=== PATIENT | female | born 1975 | race Caucasian/White ===

== ENCOUNTER 2017-11-01 19:28 | Inpatient (IN) | payer SELFPAY ==
--- NOTE | 2017-11-01 19:50 | PDOC ---
History of Present Illness - General History Source: Patient, Family Exam Limitations: No Limitations - History of Present Illness Initial Comments: 11/01/17 20:08 The patient is a 42 year old female, with no significant past medical history, who presents to the emergency department via EMS with, significant abdominal pain, nausea, and vomiting. She describes her pain as diffuse and as if she is going to explode. She reports her pain to worsen when she moves. She reports her abdominal pain to have waxed and waned for approximately a month, however, today is the worse. She reports going to multiple hospitals for her symptoms, without a formal diagnosis. She denies recent fevers, chills, headache or dizziness. She denies recent nausea, vomit, diarrhea or constipation. She denies recent dysuria, frequency, urgency or hematuria. She denies recent chest pain or shortness of breath. Allergies: Penicillins <Faustino Carrizales - Last Filed: 11/02/17 00:01> <Radha Kelsey - Last Filed: 11/02/17 01:52> - General Chief Complaint: Pain, Acute Stated Complaint: ABDOMINAL PAIN Time Seen by Provider: 11/01/17 19:50 Past History <Faustino Carrizales - Last Filed: 11/02/17 00:01> - Suicide/Smoking/Psychosocial Hx Smoking History: Never smoked Have you smoked in the past 12 months: No Information on smoking cessation initiated: No Hx Alcohol Use: No Drug/Substance Use Hx: No <Radha Kelsey - Last Filed: 11/02/17 01:52> - Past Medical History Allergies/Adverse Reactions: Allergies Allergy/AdvReac Type Severity Reaction Status Date / Time Penicillins Allergy Verified 11/01/17 19:40 Home Medications: Ambulatory Orders NK [No Known Home Medication] 11/01/17 Review of Systems - Review of Systems Able to Perform ROS?: Yes Comments:: 11/01/17 20:08 GENERAL/CONSTITUTIONAL: No fever or chills. No weakness. HEAD, EYES, EARS, NOSE AND THROAT: No change in vision. No ear pain or discharge. No sore throat. CARDIOVASCULAR: No chest pain or shortness of breath. RESPIRATORY: No cough, wheezing, or hemoptysis. GASTROINTESTINAL: +Nausea. +Vomiting. +Diffuse abdominal pain. No diarrhea or constipation. GENITOURINARY: No dysuria, frequency, or change in urination. MUSCULOSKELETAL: No joint or muscle swelling or pain. No neck or back pain. SKIN: No rash NEUROLOGIC: No headache, vertigo, loss of consciousness, or change in strength/ sensation. ENDOCRINE: No increased thirst. No abnormal weight change. HEMATOLOGIC/LYMPHATIC: No anemia, easy bleeding, or history of blood clots. ALLERGIC/IMMUNOLOGIC: No hives or skin allergy. All Other Systems: Reviewed and Negative <Faustino Carrizales - Last Filed: 11/02/17 00:01> *Physical Exam - Vital Signs Last Vital Signs Temp Pulse Resp BP Pulse Ox 98.1 F 92 H 22 125/66 97 11/01/17 19:32 11/01/17 19:32 11/01/17 19:32 11/01/17 19:32 11/01/17 19:32 <Faustino Carrizales - Last Filed: 11/02/17 00:01> - Vital Signs Last Vital Signs Temp Pulse Resp BP Pulse Ox 98.1 F 92 H 22 125/66 97 11/01/17 19:32 11/01/17 19:32 11/01/17 19:32 11/01/17 19:32 11/01/17 19:32 - Physical Exam Comments: GENERAL: Awake, alert, and fully oriented, appears in obvious discomfort. HEAD: No signs of trauma EYES: PERRLA, EOMI, sclera anicteric, conjunctiva clear ENT: Auricles normal inspection, hearing grossly normal, nares patent, oropharynx clear without exudates. Moist mucosa NECK: Normal ROM, supple, no lymphadenopathy, JVD, or masses LUNGS: Breath sounds equal, clear to auscultation bilaterally. No wheezes, and no crackles HEART: Regular rate and rhythm, normal S1 and S2, no murmurs, rubs or gallops ABDOMEN: Soft, +epigastric tenderness with small tender mass just superior to the umbilicus. Normoactive bowel sounds. +Guarding, no rebound. No masses EXTREMITIES: Normal range of motion, no edema. No clubbing or cyanosis. No cords, erythema, or tenderness NEUROLOGICAL: Cranial nerves II through XII grossly intact. Normal speech, normal gait SKIN: Warm, Dry, normal turgor, no rashes or lesions noted. <Radha Kelsey - Last Filed: 11/02/17 01:52> ED Treatment Course - LABORATORY CBC & Chemistry Diagram: 11/01/17 20:55 11/01/17 22:49 <Faustino Carrizales - Last Filed: 11/02/17 00:01> - LABORATORY CBC & Chemistry Diagram: 11/01/17 20:55 11/01/17 22:49 <Radha Kelsey - Last Filed: 11/02/17 01:52> Medical Decision Making - Medical Decision Making 11/01/17 23:[address] So, certified pediatric nurse practitioner general surgeon, case was discussed. 11/01/17 23:55 EXAM: CT abdomen without contrast and CT pelvis without contrast IMPRESSION: Anterior midline ventral hernia of small bowel with abnormal wall thickening of the herniated small bowel loop most likely due to infectious enteritis venous outflow congestion enteritis associated with incarceration or strangulation of the herniated small bowel loop. If clinically indicated followup CT Abdomen And Pelvis With Oral Contrast With Iv Contrast may be needed. Small amount of free fluid surrounding the hernia most likely due to infection. Right lower lobe nonspecific 8 mm lung nodule and a right lower lobe nonspecific 7 mm lung nodule may be benign or malignant. If clinically indicated followup evaluation may be needed. Nonspecific right ovary complex 2.8 cm cystic process. Small amount of dependent pelvic fluid may be physiologic or due to infection. A verbal report of the abnormal findings were discussed with Dr. Kelsey by Dr. Navarro at 11:33 PM EST November 01, 2017. Read by: Robert Navarro MD <Faustino Carrizales - Last Filed: 11/02/17 00:01> - Medical Decision Making 11/01/17 19:59 Pt with abd pain for months, acutely worsened today with vomiting. Noted to have tender mass just superior to the umbilicus. Will plan for CT to r/o SBO. 11/01/17 21:12 Called to bedside by RN for difficult IV access. I was able to place 22G to R hand. I noted some scarring over the L hand that was not in a consistent pattern for history of cat bite. I discussed with sister and daughter, they stated she uses marijuana occasionally, denied any IV drug abuse. As per daughter (who just arrived), patient has had similar symptoms many times, had previous CTs, had colonoscopy earlier this month. Does not have the results. Awaiting CT a/p to further evaluate. 11/01/17 22:45 Pt reassessed, pain has returned. Will give additional dose of morphine. Awaiting CT read. 11/01/17 23:45 Radiology findings d/w patient and family. Will discuss with gen surg regarding whether to attempt to reduce. She has had pain for past 6 hours. 11/02/17 00:24 Attempted to reduce hernia, unsuccessful. Patient is booked for OR in AM to repair. Will admit to hospitalist. 11/02/17 00:49 Discussed with hospitalist for admission. They requested changing from ertapenem to aztreonam and flagyl, as patient has history of anaphylaxis to penicillin. Urine tox pending- of note, it was sent BEFORE pain medication was given. <Radha Kelsey - Last Filed: 11/02/17 01:52> *DC/Admit/Observation/Transfer - Attestations Scribe Attestion: 11/01/17 20:08 Documentation prepared by Faustino Carrizales, acting as medical and health services manager for Radha Kelsey MD. <Faustino Carrizales - Last Filed: 11/02/17 00:01> - Discharge Dispostion Admit: Yes <Radha Kelsey - Last Filed: 11/02/17 01:52> Diagnosis at time of Disposition: Incarcerated hernia - Discharge Dispostion Condition at time of disposition: Guarded
[2017-11-01] MEDS ORDERED: SODIUM CHLORIDE 1,000 ML IV STA (20:00)
[2017-11-01] MEDS ORDERED: morphine CARPU-JECT 4 MG/1 ML DISP.SYRIN IVPUSH ONE ×2 (20:00→22:45)
[2017-11-01] MEDS ORDERED: ONDANSETRON 4 MG/2 ML VIAL IVPUSH ONE (20:00)
[2017-11-01] MEDS ORDERED: MORPHINE SULFATE 10 MG/1 ML *VIAL ONE ×2 (20:09→22:54)
[2017-11-01] MEDS ORDERED: ONDANSETRON 4 MG/2 ML VIAL ONE (20:10)
[2017-11-01 21:05] LABS: BASO % 0.9 % (0-2.0); EOS % 0.6 % (0-4.5); HEMATOCRIT 39.1 % (32.4-45.2); HEMOGLOBIN 13.2 GM/dL (10.7-15.3); LYMPH % 17.8 % (8-40); MCH 32.1 pg (25.7-33.7); MCHC 33.8 g/dl (32.0-36.0); MEAN CELL VOLUME 94.7 fl (80-96); MEAN PLT VOLUME 9.1 fl (7.5-11.1); MONO % 5.4 % (3.8-10.2); NEUT % 75.3 % (42.8-82.8); PLATELET COUNT 255 K/MM3 (134-434); RBC 4.13 M/mm3 (3.60-5.2); RDW 13.8 % (11.6-15.6); WHITE BLOOD COUNT 9.7 K/mm3 (4.0-10.0)
[2017-11-01 21:07] LABS: URINE APPEARANCE CLEAR; URINE BILIRUBIN NEGATIVE (NEGATIVE); URINE BLOOD NEGATIVE (NEGATIVE); URINE COLOR STRAW; URINE GLUCOSE (UA) NEGATIVE (NEGATIVE); URINE KETONE NEGATIVE (NEGATIVE); URINE LEUK ESTERASE NEGATIVE (NEGATIVE); URINE NITRITE NEGATIVE (NEGATIVE); URINE PROTEIN NEGATIVE (NEGATIVE); URINE UROBILINOGEN NEGATIVE mg/dL (0.2-1.0)
[2017-11-01 21:19] LABS: PROTHROMBIN TIME (PATIENT) 11.3 SEC (9.98-11.88)
[2017-11-01] MEDS ORDERED: HYDROmorphone HCL CARPU-JECT 1 MG/1 ML DISP.SYRIN IVPUSH ONE (23:23)
[2017-11-01 23:31] LABS: ALBUMIN 3.4 g/dl (3.4-5.0); ALK PHOS 64 U/L (45-117); ANION GAP 13 (8-16); BILIRUBIN,TOTAL 0.2 mg/dL (0.2-1.0); BLOOD UREA NITROGEN 6 mg/dL (7-18); CALCIUM 8.5 mg/dL (8.5-10.1); CHLORIDE 104 mmol/L (98-107); CO2 23 mmol/L (21-32); CREATININE 0.4 mg/dL (0.55-1.02); GLUCOSE,RANDOM 89 mg/dL (74-106); POTASSIUM 4.1 mmol/L (3.5-5.1); SGOT/AST 21 U/L (15-37); SGPT/ALT 23 U/L (12-78); SODIUM 140 mmol/L (136-145)
[2017-11-01] MEDS ORDERED: HYDROmorphone HCl/Pf 2 MG/ML VIAL - FOR OR PYXIS USE ONE (23:48)
[2017-11-01 23:54] LABS: LIPASE 111 U/L (73-393)
[2017-11-02] MEDS ORDERED: ERTAPENEM SODIUM 1 GM/50 ML PRE-DOCKED IVPB ONE (00:12)
--- NOTE | 2017-11-02 00:18 | PN ---
Progress Note (short form) - Note Progress Note: surgery incarcerated ventral hernia with loop of small bowel. wbc wnl. afebrile. no tachycardia. no overlying skin changes. recommend ngt, invanz, ice packs and attempt at reduction. if successful would repeat ct to confirm and observe. if unsuccessful will proceed with surgery in am... likely primary hernia repair +/- small bowel resection.
[2017-11-02] MEDS ORDERED: AZTREONAM 2 GM in DEXTROSE 5%-WATER - 100 ML IV ONE (00:48)
--- NOTE | 2017-11-02 01:46 | HP ---
CHIEF COMPLAINT: abdominal pain PCP: None HISTORY OF PRESENT ILLNESS: The pt is a 42 year old female, with no significant past medical history, who presented with severe abdominal pain, nausea that is present for the past 5 months and got much worse since today at 4 PM. The pain is constant 10/10, located in epigastrium, no alleviating/aggravating factors, associated with nausea. She reports that she visited multiple hospitals without any help or relief of her symptoms. last time she was in [facility] where she had colonoscopy and EGD. She was told that results were inconclusive. Last BM was one day ago, not currently passing gas. CT of abdomen showed incarcerated small bowel loop, small amount of fluid, suggestive of enteritis. She will be evaluated by surgery in AM for surgery. She denies SOB, chest pain, dizziness, diarrhea, fever, chills. ER course was notable for: (1)CT abdomen (2)Aztreonam and Flagyl (3)NPO Recent Travel: No PAST MEDICAL HISTORY: none PAST SURGICAL HISTORY: c section, tubal ligation Social History: Smoking:no Alcohol:occasionally Drugs: marijuana, used today Family History: Mother: DM, HTN, asthma, thyroid disease Father: DM, HTN, obesity Allergies Penicillins Allergy (Verified 11/01/17 19:40)-anaphylaxis HOME MEDICATIONS: Home Medications Medication Instructions Recorded NK [No Known Home Medication] 11/01/17 REVIEW OF SYSTEMS CONSTITUTIONAL: Absent: fever, chills, diaphoresis, generalized weakness, malaise, loss of appetite, weight change HEENT: Absent: rhinorrhea, nasal congestion, throat pain, throat swelling, difficulty swallowing, mouth swelling, ear pain, eye pain, visual changes CARDIOVASCULAR: Absent: chest pain, syncope, palpitations, irregular heart rate, lightheadedness , peripheral edema RESPIRATORY: Absent: cough, shortness of breath, dyspnea with exertion, orthopnea, wheezing, stridor, hemoptysis GASTROINTESTINAL:abdominal pain, nausea, Absent: abdominal distension, vomiting, diarrhea, constipation, melena, hematochezia GENITOURINARY: Absent: dysuria, frequency, urgency, hesitancy, hematuria, flank pain, genital pain MUSCULOSKELETAL: Absent: myalgia, arthralgia, joint swelling, back pain, neck pain SKIN: Absent: rash, itching, pallor ENDOCRINE: Absent: unexplained weight gain, unexplained weight loss, heat intolerance, cold intolerance NEUROLOGIC: Absent: headache, focal weakness or paresthesias, dizziness, unsteady gait, seizure, mental status changes, bladder or bowel incontinence PSYCHIATRIC: Absent: anxiety, depression, suicidal or homicidal ideation, hallucinations. PHYSICAL EXAMINATION Vital Signs - 24 hr 11/01/17 11/02/17 19:32 01:24 Temperature 98.1 F 98.0 F Pulse Rate 92 H Pulse Rate [ 86 Right Brachial] Respiratory 22 18 Rate Blood Pressure 125/66 Blood Pressure 123/90 [Left Arm] O2 Sat by Pulse 97 100 Oximetry (%) GENERAL: Awake, alert, and fully oriented, in no acute distress. HEAD: Normal with no signs of trauma. EYES: Pupils equal, round and reactive to light, extraocular movements intact, sclera anicteric, conjunctiva clear. EARS, NOSE, THROAT: oropharynx clear without exudates. Moist mucous membranes. NECK: Normal range of motion, supple without lymphadenopathy, JVD, or masses. LUNGS: Breath sounds equal, clear to auscultation bilaterally. No wheezes, and no crackles. No accessory muscle use. HEART: Regular rate and rhythm, normal S1 and S2 without murmur, rub or gallop. ABDOMEN: Soft, tender in epigastrium, distended, hypooactive bowel sounds, + guarding, no rebound, no masses. MUSCULOSKELETAL: Normal range of motion at all joints. No bony deformities or tenderness. UPPER EXTREMITIES: 2+ pulses, No peripheral edema. LOWER EXTREMITIES: 2+ pulses, No peripheral edema. NEUROLOGICAL: Normal speech, no facial asymmetry. PSYCHIATRIC: Cooperative. Good eye contact. Appropriate mood and affect. SKIN: Warm, dry, normal turgor, no rashes, bite deal noted in left hand, s/p pitbull attack in left thigh. Laboratory Results - last 24 hr 11/01/17 11/01/17 11/01/17 20:55 20:55 20:55 WBC 9.7 RBC 4.13 Hgb 13.2 Hct 39.1 MCV 94.7 MCH 32.1 MCHC 33.8 RDW 13.8 Plt Count 255 MPV 9.1 Neutrophils % 75.3 Lymphocytes % 17.8 Monocytes % 5.4 Eosinophils % 0.6 Basophils % 0.9 PT with INR 11.30 INR 1.00 Sodium Potassium Chloride Carbon Dioxide Anion Gap BUN Creatinine Creat Clearance w eGFR Random Glucose Lactic Acid Calcium Total Bilirubin AST ALT Alkaline Phosphatase Total Protein Albumin Lipase Serum , Qual Negative Urine Color Urine Appearance Urine pH Ur Specific [place] Urine Protein Urine Glucose (UA) Urine Ketones Urine Blood Urine Nitrite Urine Bilirubin Urine Urobilinogen Ur Leukocyte Esterase Blood Type Antibody Screen 11/01/17 11/01/17 11/01/17 20:55 21:02 21:18 WBC RBC Hgb Hct MCV MCH MCHC RDW Plt Count MPV Neutrophils % Lymphocytes % Monocytes % Eosinophils % Basophils % PT with INR INR Sodium Cancelled Potassium Cancelled Chloride Cancelled Carbon Dioxide Cancelled Anion Gap Cancelled BUN Cancelled Creatinine Cancelled Creat Clearance w eGFR Cancelled Random Glucose Cancelled Lactic Acid Calcium Cancelled Total Bilirubin Cancelled AST Cancelled ALT Cancelled Alkaline Phosphatase Cancelled Total Protein Cancelled Albumin Cancelled Lipase Cancelled Serum , Qual Urine Color Straw Urine Appearance Clear Urine pH 6.0 Ur Specific [place] 1.004 Urine Protein Negative Urine Glucose (UA) Negative Urine Ketones Negative Urine Blood Negative Urine Nitrite Negative Urine Bilirubin Negative Urine Urobilinogen Negative Ur Leukocyte Esterase Negative Blood Type Cancelled Antibody Screen Cancelled 11/01/17 11/01/17 11/01/17 21:25 22:49 23:43 WBC RBC Hgb Hct MCV MCH MCHC RDW Plt Count MPV Neutrophils % Lymphocytes % Monocytes % Eosinophils % Basophils % PT with INR INR Sodium Cancelled 140 Cancelled Potassium Cancelled 4.1 Cancelled Chloride Cancelled 104 Cancelled Carbon Dioxide Cancelled 23 Cancelled Anion Gap Cancelled 13 Cancelled BUN Cancelled 6 L Cancelled Creatinine Cancelled 0.4 L Cancelled Creat Clearance w eGFR Cancelled > 60 Cancelled Random Glucose Cancelled 89 Cancelled Lactic Acid Calcium Cancelled 8.5 Cancelled Total Bilirubin Cancelled 0.2 Cancelled AST Cancelled 21 Cancelled ALT Cancelled 23 Cancelled Alkaline Phosphatase Cancelled 64 Cancelled Total Protein Cancelled 7.0 Cancelled Albumin Cancelled 3.4 Cancelled Lipase Cancelled 111 Cancelled Serum , Qual Urine Color Urine Appearance Urine pH Ur Specific [place] Urine Protein Urine Glucose (UA) Urine Ketones Urine Blood Urine Nitrite Urine Bilirubin Urine Urobilinogen Ur Leukocyte Esterase Blood Type Antibody Screen 11/02/17 01:05 WBC RBC Hgb Hct MCV MCH MCHC RDW Plt Count MPV Neutrophils % Lymphocytes % Monocytes % Eosinophils % Basophils % PT with INR INR Sodium Potassium Chloride Carbon Dioxide Anion Gap BUN Creatinine Creat Clearance w eGFR Random Glucose Lactic Acid 1.6 Calcium Total Bilirubin AST ALT Alkaline Phosphatase Total Protein Albumin Lipase Serum , Qual Urine Color Urine Appearance Urine pH Ur Specific [place] Urine Protein Urine Glucose (UA) Urine Ketones Urine Blood Urine Nitrite Urine Bilirubin Urine Urobilinogen Ur Leukocyte Esterase Blood Type Antibody Screen ASSESSMENT/PLAN: 42 year old female with no PMH admitted for severe pain due to incarcerated hernia. Hernia: -incarcerated, possibly need to be operated in Am -NPO -type and screen -coags -CTY abdomen reviewed -Dr Sheikh consulted, spoke to Dr Kelsey from ED -troponins and LA normal -EKG and CXR ordered in AM DVT PPX: -SCDs F/E/N: no/no changes/NPO Disposition: med surg, possibly OR in AM Problem List - Problem (1) Incarcerated hernia Code(s): K46.0 - UNSP ABDOMINAL HERNIA WITH OBSTRUCTION, WITHOUT GANGRENE Visit type - Emergency Visit Emergency Visit: Yes ED Registration Date: 11/02/17 Care time: The patient presented to the Emergency Department on the above date and was hospitalized for further evaluation of their emergent condition. - New Patient This patient is new to me today: Yes Date on this admission: 11/02/17 - Critical Care Critical Care patient: No Hospitalist Screening - Colonoscopy Questionnaire Colonoscopy Questionnaire: Colonoscopy Questionnaire - Patient: 50 - 75 years old and never had a screening colonoscopy: No History of colon or rectal polyps, or CA: No History of IBD, Crohn's disease or UC: No History of abdominal radiation therapy as a child: No - Relative: 1 with colon or rectal CA, or polyps at age 60 or younger: No Colon or rectal CA diagnosed at age 45 or younger: No Multiple relatives with colon or rectal CA: No - Outcome: Screening Result: Negative Screen
[2017-11-02] MEDS ORDERED: LIDOCAINE HCL 2% JELLY (5 ML/TUBE) ONE (01:50)
[2017-11-02] MEDS ORDERED: HYDROmorphone HCL CARPU-JECT 4 MG/1 ML DISP.SYRIN IVPB PRN (02:09)
[2017-11-02] MEDS ORDERED: SODIUM CHLORIDE 1,000 ML IV SCH ×2 (02:15→09:26)
[2017-11-02 02:26] LABS: COCAINE, UR NEGATIVE ng/ml (CUTOFF=300); METHADONE, UR NEGATIVE ng/ml (CUTOFF=300); OPIATES, URI NEGATIVE ng/ml (CUTOFF=300); PHENCYCLIDINE,URINE NEGATIVE ng/ml (CUTOFF=25); URINE AMPHETAMINES NEGATIVE ng/ml (CUTOFF=500); URINE BARBITURATES NEGATIVE ng/ml (CUTOFF=200); URINE BENZODIAZEPINES NEGATIVE ng/ml (CUTOFF=200)
[2017-11-02 04:32] VITALS: BMI 29.0
--- NOTE | 2017-11-02 04:53 | PN ---
Teaching Attending Note Name of Resident: Camila Nunez ATTENDING PHYSICIAN STATEMENT I saw and evaluated the patient. Chart, data, imaging reviewed. I reviewed the resident's note and discussed the case with the resident. I agree with the resident's findings and plan as documented. SUBJECTIVE: 42 year old female, with no significant past medical history, who presented with significant abdominal pain, nausea, and vomiting. She reports her abdominal pain to have waxed and waned for approximately a month, however, today is the worse. Last BM was one day ago, not currently passing gas. CT of abdomen showed incarcerated small bowel loop. Dr. Prado of surgery was contacted and will see patient . Severe penicillin allergy with anaphylaxis. Received aztreonam and metronidazole. OBJECTIVE: Last Vital Signs Temp Pulse Resp BP Pulse Ox 98.0 F 79 18 132/82 100 11/02/17 03:53 11/02/17 03:53 11/02/17 03:53 11/02/17 03:53 11/02/17 03:53 general -appears uncomfortable, nontoxic cv-s1+s2+ RRR chest- cta b/l abdomen- decreased bowel sounds, epigastric tenderness to palpation skin- scabs on hands b/l Abnormal Lab Results 11/01/17 22:49 BUN 6 L Creatinine 0.[address] of abdomen - Anterior midline ventral hernia of small bowel with abnormal wall thickening of the herniated small bowel loop most likely due to infectious enteritis venous outflow congestion enteritis associated with incarceration or strangulation of the herniated small bowel loop. ASSESSMENT AND PLAN: #Incarcerated small bowel loop with normal lactate. Surgery adult secondary education instructor is aware and will see patient in propeller engineer for surgery. -admit to med/surg -pain control -IV fluid hydration -NG tube, bowel decompression -replace electrolytes -surgery consult -NPO -aztreonam/metronidazole for possible intrabdominal hernia DVT ppx -SCDs
--- NOTE | 2017-11-02 07:23 | PN ---
Progress Note (short form) - Note Progress Note: ID Request Ertepenem approval only in light of PCN allergy Will approve Consideration of Ceftriaxone and metronidazole if allergy PCN not severe or undocumented Will put order in as requested Kindly call if I can be of assistance otherwise Thank you Damon THOMPSON
--- NOTE | 2017-11-02 08:20 | PN ---
Progress Note (short form) - Note Progress Note: surgery pt seen and examined. full consult dictated. 42m with 40lb weight loss over last several months, taking castor oil for "constipation", presents with colicky abd pain, nausea and vomiting. Ct shows incarcerated vernral hernia with entrapped small bowel and chronic thickening with stranding and fluid in sac. Attempt at reduction by ER physician unsuccessful. Pt admitted, treated with ngt, started on invanz and feels somewhat better. Pt remains afebrile with normal vitals. on exam abd is soft, nt, nd, obese with incarcerated supraumbilical ventral hernia. no overlying skin changes. Plan- suspect chronically incarcerated ventral hernia with psbo that now has become completely obstucted. will proceed with surgical repair. will not use mesh for risk of contamination. will possibly require a bowel resection
--- NOTE | 2017-11-02 08:23 | OP ---
Operative Note - Note: Operative Date: 11/02/17 Pre-Operative Diagnosis: incarcerated ventral hernia, small bowel obstruction Operation: primary repair incarcerated ventral hernia, open Findings: chronically incarcerated viable small bowel Post-Operative Diagnosis: Same as Pre-op Surgeon: Phil So Anesthesiologist/ECHO VASCULAR TECHNOLOGIST: Shanna Portillo Anesthesia: General Estimated Blood Loss (mls): 10 Drains & Tubes with Location: none Operative Report Dictated: Yes
[2017-11-02] MEDS ORDERED: LACTATED RINGERS SOLUTION 1,000 ML IV SCH (08:30)
[2017-11-02] MEDS ORDERED: ACETAMINOPHEN 325 MG TABLET (FP) PO PRN (08:31)
[2017-11-02] MEDS ORDERED: ONDANSETRON 4 MG/2 ML VIAL IVPUSH PRN (08:31)
[2017-11-02] MEDS ORDERED: PROPOFOL 20 ML ONE (08:34)
[2017-11-02] MEDS ORDERED: ROCURONIUM BROMIDE 50 MG/5 ML VIAL ONE (08:35)
[2017-11-02] MEDS ORDERED: SUCCINYLCHOLINE CHLORIDE 200 MG/10 ML VIAL ONE (08:35)
[2017-11-02] MEDS ORDERED: DEXAMETHASONE SOD PHOSPHATE 4 MG/1 ML VIAL ONE (09:05)
[2017-11-02] MEDS ORDERED: NEOSTIGMINE METHYLSULFATE 0.5 MG/ML - 10 ML MDV ONE (09:16)
[2017-11-02] MEDS ORDERED: GLYCOPYRROLATE 0.2 MG/1 ML VIAL ONE (09:17)
--- NOTE | 2017-11-02 09:21 | PN ---
Progress Note (short form) - Note Progress Note: surgery s/p primary repair of incarcerated chronic ventral hernia. now resolution of small bowel obstruction. will d/c ngt. start full liquids. stop iv abx. can d/c home tomorrow on liquids till wed if tolerating. recommend 1 week percocet prn. f/u in 2 weeks. ok to shower. ok to drive. no lifting > 20lbs. [phone]
[2017-11-02] MEDS ORDERED: MIDAZOLAM HCL 2 MG/2 ML SINGLE DOSE VIAL ONE (09:24)
[2017-11-02] MEDS ORDERED: ERTAPENEM SODIUM 1 GM/50 ML PRE-DOCKED IVPB SCH (10:00)
[2017-11-02] MEDS ORDERED: ERTAPENEM SODIUM 1 GM in SODIUM CHLORIDE 100 ML IVPB SCH (10:00)
[2017-11-02] MEDS: HYDROmorphone HCL CARPU-JECT 4 MG/1 ML DISP.SYRIN IVPB PRN ×3 (11:09→21:41)
[2017-11-02] MEDS: ENOXAPARIN NA (PORCINE) 40 MG/0.4 ML DISP.SYRIN SQ SCH (11:17)
--- NOTE | 2017-11-02 12:11 | PN ---
Progress Note (short form) - Note Progress Note: Subjective seen after sx feels better , has abd pain at site of incision . No fever , no SOB , no CP Objective: Vital Signs: Last Vital Signs Temp Pulse Resp BP Pulse Ox 97.8 F 56 L 15 105/58 100 11/02/17 10:30 11/02/17 10:30 11/02/17 10:30 11/02/17 10:30 11/02/17 10:15 Laboratory Results - last 24 hr 11/01/17 11/01/17 11/01/17 20:55 20:55 20:55 WBC 9.7 RBC 4.13 Hgb 13.2 Hct 39.1 MCV 94.7 MCH 32.1 MCHC 33.8 RDW 13.8 Plt Count 255 MPV 9.1 Neutrophils % 75.3 Lymphocytes % 17.8 Monocytes % 5.4 Eosinophils % 0.6 Basophils % 0.9 PT with INR 11.30 INR 1.00 Sodium Potassium Chloride Carbon Dioxide Anion Gap BUN Creatinine Creat Clearance w eGFR Random Glucose Lactic Acid Calcium Total Bilirubin AST ALT Alkaline Phosphatase Troponin I Total Protein Albumin Lipase Serum , Qual Negative Urine Color Urine Appearance Urine pH Ur Specific [place] Urine Protein Urine Glucose (UA) Urine Ketones Urine Blood Urine Nitrite Urine Bilirubin Urine Urobilinogen Ur Leukocyte Esterase Opiates Screen Methadone Screen Barbiturate Screen Phencyclidine Screen Ur Amphetamines Screen MDMA (Ecstasy) Screen Benzodiazepines Screen Cocaine Screen U Marijuana (THC) Screen Blood Type Antibody Screen 11/01/17 11/01/17 11/01/17 20:55 21:02 21:18 WBC RBC Hgb Hct MCV MCH MCHC RDW Plt Count MPV Neutrophils % Lymphocytes % Monocytes % Eosinophils % Basophils % PT with INR INR Sodium Cancelled Potassium Cancelled Chloride Cancelled Carbon Dioxide Cancelled Anion Gap Cancelled BUN Cancelled Creatinine Cancelled Creat Clearance w eGFR Cancelled Random Glucose Cancelled Lactic Acid Calcium Cancelled Total Bilirubin Cancelled AST Cancelled ALT Cancelled Alkaline Phosphatase Cancelled Troponin I Total Protein Cancelled Albumin Cancelled Lipase Cancelled Serum , Qual Urine Color Straw Urine Appearance Clear Urine pH 6.0 Ur Specific [place] 1.004 Urine Protein Negative Urine Glucose (UA) Negative Urine Ketones Negative Urine Blood Negative Urine Nitrite Negative Urine Bilirubin Negative Urine Urobilinogen Negative Ur Leukocyte Esterase Negative Opiates Screen Methadone Screen Barbiturate Screen Phencyclidine Screen Ur Amphetamines Screen MDMA (Ecstasy) Screen Benzodiazepines Screen Cocaine Screen U Marijuana (THC) Screen Blood Type Cancelled Antibody Screen Cancelled 11/01/17 11/01/17 11/01/17 21:25 22:49 23:43 WBC RBC Hgb Hct MCV MCH MCHC RDW Plt Count MPV Neutrophils % Lymphocytes % Monocytes % Eosinophils % Basophils % PT with INR INR Sodium Cancelled 140 Cancelled Potassium Cancelled 4.1 Cancelled Chloride Cancelled 104 Cancelled Carbon Dioxide Cancelled 23 Cancelled Anion Gap Cancelled 13 Cancelled BUN Cancelled 6 L Cancelled Creatinine Cancelled 0.4 L Cancelled Creat Clearance w eGFR Cancelled > 60 Cancelled Random Glucose Cancelled 89 Cancelled Lactic Acid Calcium Cancelled 8.5 Cancelled Total Bilirubin Cancelled 0.2 Cancelled AST Cancelled 21 Cancelled ALT Cancelled 23 Cancelled Alkaline Phosphatase Cancelled 64 Cancelled Troponin I Total Protein Cancelled 7.0 Cancelled Albumin Cancelled 3.4 Cancelled Lipase Cancelled 111 Cancelled Serum , Qual Urine Color Urine Appearance Urine pH Ur Specific [place] Urine Protein Urine Glucose (UA) Urine Ketones Urine Blood Urine Nitrite Urine Bilirubin Urine Urobilinogen Ur Leukocyte Esterase Opiates Screen Methadone Screen Barbiturate Screen Phencyclidine Screen Ur Amphetamines Screen MDMA (Ecstasy) Screen Benzodiazepines Screen Cocaine Screen U Marijuana (THC) Screen Blood Type Antibody Screen 11/01/17 11/02/17 11/02/17 23:46 01:05 01:05 WBC RBC Hgb Hct MCV MCH MCHC RDW Plt Count MPV Neutrophils % Lymphocytes % Monocytes % Eosinophils % Basophils % PT with INR INR Sodium Potassium Chloride Carbon Dioxide Anion Gap BUN Creatinine Creat Clearance w eGFR Random Glucose Lactic Acid 1.6 Calcium Total Bilirubin AST ALT Alkaline Phosphatase Troponin I Total Protein Albumin Lipase Serum , Qual Urine Color Urine Appearance Urine pH Ur Specific [place] Urine Protein Urine Glucose (UA) Urine Ketones Urine Blood Urine Nitrite Urine Bilirubin Urine Urobilinogen Ur Leukocyte Esterase Opiates Screen Negative Methadone Screen Negative Barbiturate Screen Negative Phencyclidine Screen Negative Ur Amphetamines Screen Negative MDMA (Ecstasy) Screen Negative Benzodiazepines Screen Negative Cocaine Screen Negative U Marijuana (THC) Screen Positive Blood Type O POSITIVE Antibody Screen Negative 11/02/17 03:40 WBC RBC Hgb Hct MCV MCH MCHC RDW Plt Count MPV Neutrophils % Lymphocytes % Monocytes % Eosinophils % Basophils % PT with INR INR Sodium Potassium Chloride Carbon Dioxide Anion Gap BUN Creatinine Creat Clearance w eGFR Random Glucose Lactic Acid Calcium Total Bilirubin AST ALT Alkaline Phosphatase Troponin I 0.02 Total Protein Albumin Lipase Serum , Qual Urine Color Urine Appearance Urine pH Ur Specific [place] Urine Protein Urine Glucose (UA) Urine Ketones Urine Blood Urine Nitrite Urine Bilirubin Urine Urobilinogen Ur Leukocyte Esterase Opiates Screen Methadone Screen Barbiturate Screen Phencyclidine Screen Ur Amphetamines Screen MDMA (Ecstasy) Screen Benzodiazepines Screen Cocaine Screen U Marijuana (THC) Screen Blood Type Antibody Screen Physical Exam: NAD CV : RRR Lungs: CTAB ext: no edema , bruises on L lower medial thigh with small scabs. Abd: soft, ND , hypoactive BS . TTP in periumbilical area . mid line surgical wound with maria in supraumbilical area Assessment/Plan: 42 y/o lady with no significant PMH who presented with severe abd pain and was found to have incarcerated abd wall hernia 1- incarcerated hernia with partial small bowel obstruction : s/p surgical repair . - clears - off abx. no signs of infection , source controlled - DVT Px - pain control 2- weight loss. could be due to her chronic abd pain , which could be related to her hernia . hopefully it bessie get better . any way she will need repeat of her colonoscopy which was not complete age appropriate cancer screening as outpt Visit type - Emergency Visit Emergency Visit: Yes ED Registration Date: 11/02/17 Care time: The patient presented to the Emergency Department on the above date and was hospitalized for further evaluation of their emergent condition. - New Patient This patient is new to me today: Yes Date on this admission: 11/02/17 - Critical Care Critical Care patient: No
[2017-11-02] MEDS ORDERED: oxyCODONE HCL 5 MG TABLET PO PRN (12:35)
--- NOTE | 2017-11-02 15:49 | CONS ---
DATE OF CONSULTATION: 11/02/2017 REASON FOR CONSULTATION: Small-bowel obstruction, incarcerated ventral hernia. This is an emergency room consultation at the request of the emergency room physician. The patient was subsequently admitted to the hospital, is being seen and examined in the hospital. BRIEF HISTORY: This is a 42-year-old female who was previously morbidly obese, who states for the past 4 to 5 months she has had significant weight loss, up to 40 pounds, with problems with abdominal pain and constipation. She has to have castor oil with meals in order to help her get food through. She states she has been to multiple emergency rooms throughout this time. She was unaware that she had a ventral hernia with bowel in it, but does not have any CAT scan reports with her. She came to the [facility] emergency room complaining of severe abdominal pain. She took marijuana at home to help with the pain and nausea and vomiting. While in the emergency room, she had a CAT scan of the abdomen and pelvis, which showed an incarcerated supraumbilical ventral hernia with a loop of bowel incarcerated within it. The bowel appeared to be chronically thickened. There are also some inflammatory changes consistent with an acute incarceration/obstruction as well. The patient was admitted to the hospital, nasogastric tube decompression was done, ice packs were placed, and attempt by the physician to reduce this was unsuccessful. Patient was also given Invanz antibiotic to treat for possible bowel translocation and request was made for surgical evaluation for repair of the hernia. The patient, overnight, feels a little bit better. She has had no fever since arrival. She has had normal vital signs and her white blood cell count was normal. She has had minimal output from the nasogastric tube. Her past medical history is negative. Past surgical history is significant for tubal ligation done laparoscopically with an infraumbilical incision as well as a section. Her social history is positive for occasional alcohol consumption, positive for occasional marijuana consumption, negative for tobacco. Her family history is negative for malignancy in the immediate family. She takes no medications. She has an allergy to PENICILLIN. REVIEW OF SYSTEMS: General: Denies fatigue or malaise. Cardiac: Denies chest pain or palpitations. Respiratory: No shortness of breath or wheeze. Gastrointestinal: As in HPI. Denies diarrhea, denies blood in her stool. Admits to weight loss. Genitourinary: Denies dysuria. Musculoskeletal: Denies joint pain, joint swelling. Psychiatric: Denies anxiety, depression, or hearing voices. PHYSICAL EXAMINATION: General: This is an overweight 42-year-old female in no distress. Vital Signs: Her vital signs are stable. HEENT: Her head is normocephalic. Her sclerae are anicteric. Neck: Supple. Chest: Clear. Abdomen: Soft. There is significant adipose tissue, limiting exam. She has a palpable incarcerated hernia approximately 3 inches above her umbilicus. There is mild tenderness upon pressing in this area. It appears to have a fluid-filled sac underneath. There are no obvious skin changes. No cellulitic changes. Her abdomen is otherwise benign. Extremities: Her extremities have no edema. REVIEW OF HER LABORATORY: Her white blood cell count is normal at 9.7. Her chemistries are unremarkable. Her imaging is as in HPI. ASSESSMENT: A 42-year-old female with 4 months of abdominal pain, weight loss, and constipation symptoms, with a CAT scan showing incarcerated loop of small bowel with chronic changes noted on CAT scan. Clinically I suspect this is a chronically incarcerated ventral hernia that also has led to a chronic partial bowel obstruction. She likely now has an acute component to this with new inflammatory changes within the hernia sac. At this point, the patient will require operative management in order to relieve this partial obstruction and this entrapped loop of bowel. I will do this without mesh, as there would be a high risk of translocation of bacteria and mesh infection. By doing this primarily, she will have an increased risk of recurrence but that can be dealt with in an elective manner, also will have a small chance that the bowel could be compromised or could be damaged during freeing it up. If so, she may require a bowel resection but I am hopeful that that will not be required. The patient was given Invanz antibiotic prophylactically because of the potential for translocation of bacteria. Invanz was chosen because she is allergic to PENICILLIN and Invanz will cover E coli and other enteric as well as gram-negative related subhash. Risks and benefits of surgery have been explained to patient in detail. These are including but not limited to the possibility of recurrence, the possibility of injury to bowel, the possibility of blood loss requiring blood transfusion, possibility of infection, possibility of future obstruction. If she requires a bowel resection, she is at risk of anastomotic leak as well as stricture, plus a multitude of medical risks including but not limited to cardiac, neurologic, pulmonary, and vascular complications, even . The patient understands these risks and is agreeable to surgery. DO MICHELA CALDERON/[id number]
--- NOTE | 2017-11-02 18:35 | EKG ---
Test Reason : Blood Pressure : / mmHG Vent. Rate : 066 BPM Atrial Rate : 066 BPM P-R Int : 158 ms QRS Dur : 080 ms QT Int : 416 ms P-R-T Axes : 032 012 008 degrees QTc Int : 436 ms NORMAL SINUS RHYTHM T WAVE ABNORMALITY, CONSIDER ANTERIOR ISCHEMIA ABNORMAL ECG NO PREVIOUS ECGS AVAILABLE Confirmed by MD ANGEL, CAROL ([id number]) on 11/02/2017 6:34:46 PM Referred By: Confirmed By:CAROL ORTIZ MD
--- NOTE | 2017-11-02 20:46 | OP ---
DATE OF OPERATION: 11/02/2017 PREOPERATIVE DIAGNOSIS: Small-bowel obstruction, incarcerated ventral hernia. POSTOPERATIVE DIAGNOSIS: Small-bowel obstruction, incarcerated ventral hernia. PROCEDURE: Primary repair of incarcerated ventral hernia. SURGEON: Roxy So DO STEAM TUNNEL FEEDER: There was no floral assistant. ANESTHESIOLOGIST: Shanna Portillo DO (general) SPECIMEN: None. FINDINGS: An incarcerated loop of small bowel that had no evidence of compromise, and a defect that 3 cm in size. BLOOD LOSS: Minimal. DRAINS: None. COMPLICATIONS: None. BRIEF HISTORY: This is a 42-year-old female, presented to [facility] with signs of chronic incarcerated hernia and bowel obstruction with weight loss as well. She presents now for an urgent procedure. Invanz was given prior for the possibility of translocation of bacteria. PROCEDURE: The patient was placed in supine position. After general anesthesia was initiated, the abdomen was prepped and draped in sterile fashion. No Polo catheter was inserted. Next, a vertical incision was made supraumbilical, approximately 4 cm in length. A scalpel was used to go through the skin and subcutaneous tissue. The hernia sac was easily identified. It was dissected down to the fascial defect, which was approximately 3 cm in size. The hernia sac did not appear to have any inflammatory fluid. The bowel did not appear to be compromised and it was easily visualized through the thin sac. At this point, the hernia sac was delivered back into the preperitoneal space which was developed. The fascial defect was easily identified. It was closed with multiple interrupted 0 Prolene sutures. The wound was irrigated. The subcutaneous tissue was closed with Vicryl and the skin was closed with maria and Dermabond. Overall, the patient tolerated the procedure well, there were no complications. Plan was to remove the nasogastric tube at the end of the operation and patient could attempt a liquid diet with possible discharge within 24 hours. Mesh was not used because of possible translocation of bacteria from the incarcerated bowel and patient is at high risk of recurrence of her hernia. ROXY SO DO [id number] MTDD
[2017-11-02] MEDS ORDERED: ZOLPIDEM TARTRATE 5 MG TABLET PO ONE (21:03)
[2017-11-03 07:29] LABS: HEMATOCRIT 34.1 % (32.4-45.2); HEMOGLOBIN 11.3 GM/dL (10.7-15.3); MCH 31.6 pg (25.7-33.7); MCHC 33.3 g/dl (32.0-36.0); MEAN CELL VOLUME 94.8 fl (80-96); MEAN PLT VOLUME 8.6 fl (7.5-11.1); PLATELET COUNT 212 K/MM3 (134-434); RBC 3.59 M/mm3 (3.60-5.2); RDW 13.9 % (11.6-15.6); WHITE BLOOD COUNT 8.4 K/mm3 (4.0-10.0)
--- NOTE | 2017-11-03 07:29 | PN ---
Physical Exam: SUBJECTIVE: No overnight events, patient is tolerating full liquid diet. States that she has some urinary retention - she is able to urinate but reports not being able to fully void. Patient states that she has not had any bowel movements and has difficulty passing gas. States that she passes gas but has some pain when she pushes. States that she has some soreness in her throat. OBJECTIVE: Vital Signs Period Temp Pulse Resp BP Sys/Joseph Pulse Ox Last 24 Hr 97.8 F-99.3 F 50-97 12-20 98-130/50-73 99-100 GENERAL: The patient is awake, alert, and fully oriented, in no acute distress. ENT: Moist mucus membranes NECK: Trachea midline, full range of motion, supple. LUNGS: CTA HEART: RRR, no murmurs ABDOMEN: Soft, mildly tender to palpation in the LUQ and mid-epigastrum, longitudinal surgical excision noted superior to the umbilicus. Clean, no drainage. EXTREMITIES: 2+ pulses, warm, well-perfused, no edema. NEUROLOGICAL: CN II-XII PSYCH: Normal mood, normal affect. SKIN: Warm, dry, normal turgor, no rashes or lesions noted Active Medications Generic Name Dose Route Start Last Admin Trade Name Freq PRN Reason Stop Dose Admin Acetaminophen 650 mg 11/02/17 08:31 Tylenol - PO Q4H PRN FEVER Enoxaparin Sodium 40 mg 11/02/17 10:00 11/02/17 11:17 Lovenox - SQ Not Given DAILY YOU Hydromorphone HCl 1 mg 11/02/17 09:26 11/02/17 21:41 Dilaudid Injection - IVPB 1 mg Q4H PRN Administration PAIN LEVEL 7 - 10 Ondansetron HCl 4 mg 11/02/17 08:31 Zofran Injection IVPUSH Q6H PRN NAUSEA Oxycodone HCl 5 mg 11/02/17 12:35 Roxicodone - PO Q4H PRN PAIN SCALE 3-6 ASSESSMENT/PLAN: 42 year old female with no significant past medical history is admitted incarcerated hernia #Incarcerated Hernia: POD #1 s/p repair -patient tolerating full liquid diet - keep on liquids to tomorrow -monitor for bowel movements -encourage incentive spirometry -zofran for nausea -pain control w/ oxycodone -Dr. So surgery -encourage ambulation -may likely go home today #Urinary Retention: patient complains of not emptying her bladder fully today -likely related to surgery -monitor today, straight cath -bladder scan for post void residual -likely d/c patient if voids spontaneously -encourage ambulation #FEN -No standing fluids -electrolytes within normal limits -full-liquid diet, may advance today #Prophylaxis -lovenox prophylaxis #Disposition -continue to monitor on med-surg Visit type - Emergency Visit Emergency Visit: No - New Patient This patient is new to me today: Yes Date on this admission: 11/03/17 - Critical Care Critical Care patient: No
[2017-11-03 08:00] LABS: ANION GAP 12 (8-16); BLOOD UREA NITROGEN 4 mg/dL (7-18); CALCIUM 8.3 mg/dL (8.5-10.1); CHLORIDE 103 mmol/L (98-107); CO2 24 mmol/L (21-32); CREATININE 0.4 mg/dL (0.55-1.02); GLUCOSE,RANDOM 82 mg/dL (74-106); POTASSIUM 3.6 mmol/L (3.5-5.1); SODIUM 139 mmol/L (136-145)
--- NOTE | 2017-11-03 08:34 | PN ---
Progress Note (short form) - Note Progress Note: POD #1 - s/p open ventral hernia repair under general anesthesia. VSS. Pt. doing well, resting comfortably in bed. No complaints. No apparent anesthetic complications noted. Continue current care.
[2017-11-03] MEDS ORDERED: oxyCODONE HCL 5 MG TABLET PO PRN (10:08)
[2017-11-03] MEDS: ENOXAPARIN NA (PORCINE) 40 MG/0.4 ML DISP.SYRIN SQ SCH (10:45)
[2017-11-03 11:25] LABS: URINE APPEARANCE CLEAR; URINE BILIRUBIN NEGATIVE (NEGATIVE); URINE BLOOD NEGATIVE (NEGATIVE); URINE COLOR STRAW; URINE GLUCOSE (UA) NEGATIVE (NEGATIVE); URINE KETONE NEGATIVE (NEGATIVE); URINE LEUK ESTERASE NEGATIVE (NEGATIVE); URINE NITRITE NEGATIVE (NEGATIVE); URINE PROTEIN NEGATIVE (NEGATIVE); URINE UROBILINOGEN NEGATIVE mg/dL (0.2-1.0)
--- NOTE | 2017-11-03 11:41 | PN ---
Teaching Attending Note Name of Resident: Phil Alexandre ATTENDING PHYSICIAN STATEMENT I saw and evaluated the patient. I reviewed the resident's note and discussed the case with the resident. I agree with the resident's findings and plan as documented. SUBJECTIVE: No fever or chills, has abd pain. no N/V , tolerated liquids . feels difficulty passing urine( needs to push ) , but no dysuria. also denies dysuria or fequency or any urinary problems on admission .passed gas OBJECTIVE: NAD CV : RRR Lungs: CTAB Ext: no edema , bruises on L lower medial thigh with small scabs. Abd: soft, ND , Nl BS today . TTP in periumbilical area . mid line surgical wound with maria in supraumbilical area. bladder is not percussed ot palpated in suprapubic area Assessment/Plan: 42 y/o lady with no significant PMH who presented with severe abd pain and was found to have incarcerated abd wall hernia 1- Incarcerated hernia with partial small bowel obstruction: s/p surgical repair. - cont clears for few more days , then advance diet as tolerated - off abx for incarceration - pain control ,increase percocet to 2 pills PRN 2-Difficulty with urination :No dysuria , could be due to abd surgery . need to r/o urinary retention although doubt it ( bladder is not percussed or palpated) although urine cx on admission is growing low colony counts of group D strep, she did not have any sx that indicated a UTI before coming - repeat UA. - hold off Abx for initial asympromatic bacteruria . - check post void bladder scan 3- Weight loss. could be due to her chronic abd pain , which could 've been related to her hernia . -l need repeat of her colonoscopy which was not complete age appropriate cancer screening as outpt possible dc today ot f/u with Dr. So for staple removal , Gi for colonoscopy , and establish care with PCP ( resident clinic)
--- NOTE | 2017-11-03 16:09 | DS ---
Physical Exam: SUBJECTIVE: No overnight events, patient is tolerating full liquid diet. States that she has some urinary retention - she is able to urinate but reports not being able to fully void. Patient states that she has not had any bowel movements and has difficulty passing gas. States that she passes gas but has some pain when she pushes. States that she has some soreness in her throat. OBJECTIVE: Vital Signs Period Temp Pulse Resp BP Sys/Joseph Pulse Ox Last 24 Hr 98.1 F-99.3 F 61-97 18-20 103-130/50-83 99-99 PHYSICAL EXAM GENERAL: The patient is awake, alert, and fully oriented, in no acute distress. ENT: Moist mucus membranes NECK: Trachea midline, full range of motion, supple. LUNGS: CTA HEART: RRR, no murmurs ABDOMEN: Soft, mildly tender to palpation in the LUQ and mid-epigastrum, longitudinal surgical excision noted superior to the umbilicus. Clean, no drainage. EXTREMITIES: 2+ pulses, warm, well-perfused, no edema. NEUROLOGICAL: CN II-XII PSYCH: Normal mood, normal affect. : patient voided and post void residual volume measured to be 150 SKIN: Warm, dry, normal turgor, no rashes or lesions noted LABS Laboratory Results - last 24 hr 11/03/17 11/03/17 11/03/17 06:30 06:30 10:57 WBC 8.4 RBC 3.59 L Hgb 11.3 D Hct 34.1 MCV 94.8 MCH 31.6 MCHC 33.3 RDW 13.9 Plt Count 212 MPV 8.6 Sodium 139 Potassium 3.6 Chloride 103 Carbon Dioxide 24 Anion Gap 12 BUN 4 L Creatinine 0.4 L Random Glucose 82 Calcium 8.3 L Urine Color Straw Urine Appearance Clear Urine pH 7.0 Ur Specific [place] 1.004 Urine Protein Negative Urine Glucose (UA) Negative Urine Ketones Negative Urine Blood Negative Urine Nitrite Negative Urine Bilirubin Negative Urine Urobilinogen Negative Ur Leukocyte Esterase Negative Microbiology 11/01/17 21:02 Urine - Urine Clean Catch Urine Culture - Preliminary Group D Strep Or Entero Coccus 11/02/17 01:05 Blood - Peripheral Venous Blood Culture - Preliminary NO GROWTH OBTAINED AFTER 24 HOURS, INCUBATION TO CONTINUE FOR 4 DAYS. 11/02/17 01:05 Blood - Peripheral Venous Blood Culture - Preliminary NO GROWTH OBTAINED AFTER 24 HOURS, INCUBATION TO CONTINUE FOR 4 DAYS. IMAGING: The liver, spleen, pancreas and adrenal glands are unremarkable. No gallstones are identified. There is no evidence of retroperitoneal lymphadenopath There is dilatation of both renal collecting systems probably secondary to significant the distended urinary bladder.. No renal masses identified. No renal calculi identified. The uterus is unremarkable. There is a ventral hernia containing mildly distended small bowel with some inflammatory changes. This could be secondary to early incarceration or early obstruction. There is mild distention of the small bowel in the region. There is a 1 cm nodular calcification is seen in the soft tissues anterior right lower quadrant , it is a nonspecific finding Impression: Ventral hernia containing mildly distended small bowel with some inflammatory changes suggestive of early incarceration HOSPITAL COURSE: Date of Admission:11/02/17 42 year old female with no significant past medical history arrived at the hospital for severe, 10/10 epigastric abdominal pain and nausea of 5 months and got much worse before admission. She was admitted multiple times to other hospitals, most recently [facility] where she had colonoscopy and EGD after which she was told results were inconclusive. In the ED, CT of abdomen showed incarcerated small bowel loop, small amount of fluid, suggestive of enteritis. She was admitted for the treatment of incarcerated abdominal wall hernia. Patient was kept NPO and surgery Dr. So was consulted for surgical repair of incarcerated hernia. The day following the surgery, patient felt pain which she stated was mildly controlled by percocet. Patient was tolerating full liquid diet. She was passing gas but it hurt her to do so. She initially had mild urinary retention, but after ambulation, her urinary retention had improved. She was tested for UTI - her UA was negative and her urine grew low colony count group D strep or enterococcus as listed above. It was decided not to treat due to the fact that it was asymptomatic. She was discharged on with instructions to continue full liquid diet for 2 more days and to advance as tolerated. She was instructed to make an appointment at [facility] and with the surgeon to remove maria in 7-10 days. She was also referred to the arts and crafts teacher for a colonoscopy. Date of Discharge: 11/03/17 Minutes to complete discharge: 35 Discharge Summary Reason For Visit: INCARCERATED HERNIA Current Active Problems Incarcerated hernia (Acute) Condition: Improved - Instructions Diet, Activity, Other Instructions: You were admitted to the hospital for incarcerated hernia. Your surgeon, Dr. So, performed an operation to repair the hernia. Medical Recommendations: -It is common to still feel pain several days after the surgery -Stay on liquid diet until Friday, then slowly reintroduce solid foods in small amounts as tolerated. -If necessary, take percocet 1-2 pills every 4 hours as needed for pain, do not take more, as they can cause you to be constipated and/or affect your breathing -It is ok not to have a bowel movement for 1-2 days after surgery, but if you don't have one for 4-5 days, please call your surgeon. -The maria you received on your wound can be taken out in 7-10 days. Make an appointment with the surgeon within a week to have your maria removed - Keep the wound clean and dry, if you notice significant drainage from the wound, call your surgeon Referrals: *Make an appointment with a primary care physician within 1 week of discharge. You can make an appointment with us at [facility]: Dr. Alexandre ( at Dr. Garcia's office ) [address] [place] [address], [address] [place] [address] *Make an appointment with Dr. So, your surgeon, within 1 week of discharge. - make appointment with your GI doctor for repeat colonoscopy , if you don't have one , you can see Dr. Buckley Return to hospital if severe symptoms occur. Referrals: Don Garcia MD [Staff Physician] - Fabian Buckley MD [Staff Physician] - ON STAFF,NOT [Non Staff, Medical] - Phil So MD [Staff Physician] - 1 Week Disposition: HOME - Home Medications Comprehensive Discharge Medication List: Ambulatory Orders Oxycodone HCl/Acetaminophen [Percocet 5-325 mg Tablet] 1 tab PO Q4H PRN #42 tablet MDD 6 11/02/17 This patient is new to me today: Yes Date on this admission: 11/03/17 Emergency Visit: No Critical Care patient: No - Discharge Referral Referred to [facility] Med P.C.: No
[2017-11-03 16:54] VITALS: BP 101/60; PULSE 62; TEMP 98.1
--- NOTE | 2017-11-03 18:32 | PN ---
Progress Note (short form) - Note Progress Note: surgery pt reportedly tolerating diet and discharged earlier today by the medical team. will follow as outpt.
== END 2017-11-03 16:59 | disposition home or self-care (01) | DRG 227 ==
LOC: JER 19:28 → SUPCPDRO 19:28 → JERBED 11-02 00:47 → UNDOADMIN 11-02 00:55 → JERBED 11-02 00:55 → J8W 11-02 02:49
PROVIDERS: ADMIT Internal Medicine; ATTEND Internal Medicine
PROC: 0WQF0ZZ Repair Abdominal Wall, Open Approach (ICD-10-PCS; principal; 2017-11-02 08:00)
DX: K43.6 Other and unspecified ventral hernia with obstruction, without gangrene (principal); K56.699 Other intestinal obstruction unspecified as to partial versus complete obstruction; R11.2 Nausea with vomiting, unspecified; R63.4 Abnormal weight loss; Z68.29 Body mass index [BMI] 29.0-29.9, adult; R33.8 Other retention of urine; Z88.0 Allergy status to penicillin
CPT/HCPCS: 36415; 71045-TC-FY; 74176-TC; 80048; 80053; 80307; 81003; 83605; 83690; 84484; 84703; 85025; 85027; 85610; 86850; 86900; 86901; 87040; 87086; 87186; 93005; 93010; 94010; 99285-25